=== PATIENT | female | born 1980 | race Caucasian/White ===

== ENCOUNTER 2017-04-21 22:09 | Emergency (ER) | payer OTHER ==
[~2017-04-21] VITALS: Ht 162.6 cm; Wt 70.4 kg
[~2017-04-21 22:09] MED LIST: ERY-TAB500 MG PO; NASONEX17 GM BOTH NARES; NOHOMEMEDS; TESSALON PERLE100 MG PO
[2017-04-21 22:13] VITALS: BP 118/72
[2017-04-21 23:52] LABS: ADD MIUA? YES; BILIRUBIN NEGATIVE; BLOOD NEGATIVE; COLOR YELLOW ((YELLOW)); GLUCOSE (STRIP) NEGATIVE; KETONES NEGATIVE; LEUKOCYTES TRACE; NITRITE NEGATIVE; PROTEIN (STRIP) NEGATIVE; SPECIFIC GRAVITY 1.019 (1.000-1.030)
[2017-04-21 23:57] LABS: BACTERIA RARE /HPF; EPITHELIAL CELLS 1+ /HPF; MUCUS TRACE /LPF; RED BLOOD CELLS 0-5 /HPF (0-5); UCUL ADDED? NO; WHITE BLOOD CELLS 0-5 /HPF (0-5)
[2017-04-22] MEDS ORDERED: FLEXERIL10 MG PO (00:57)
[2017-04-22] MEDS ORDERED: MEDROL DOSEPAK4 MG PO (00:57)
[2017-04-22] MEDS ORDERED: PERCOCET 5/31 TABLET PO (00:57)
== END 2017-04-22 01:27 | disposition home or self-care (01) ==
LOC: EME 22:09 → EXP 22:09
PROVIDERS: Emergency Medicine
DX: S39.012A Strain of muscle, fascia and tendon of lower back, initial encounter (principal); X50.9XXA Other and unspecified overexertion or strenuous movements or postures, initial encounter; Y93.E2 Activity, laundry; M51.37 Other intervertebral disc degeneration, lumbosacral region; M47.9 Spondylosis, unspecified
CPT/HCPCS: 72100; 81003; 99281; 99284

== ENCOUNTER 2018-06-28 01:26 | Emergency (ER) | payer OTHER ==
[~2018-06-28] VITALS: Ht 162.6 cm; Wt 74.6 kg
[~2018-06-28 01:26] MED LIST changes: +FLEXERIL10 MG PO; +MEDROL DOSEPAK4 MG PO; +PERCOCET 5/31 TABLET PO
[2018-06-28] MEDS ORDERED: KEFLEX500 MG PO (02:17)
[2018-06-28] MEDS ORDERED: ULTRAM50 MG PO (02:18)
[2018-06-28 03:32] VITALS: BP 120/76
== END 2018-06-28 03:33 | disposition home or self-care (01) ==
LOC: EME 01:26
DX: L25.9 Unspecified contact dermatitis, unspecified cause (principal); Z91.041 Radiographic dye allergy status
CPT/HCPCS: 99281; 99284; J1100